=== PATIENT | male | born 1945 | race Caucasian/White ===

== ENCOUNTER → 2017-05-23 | Outpatient (REF) | payer MEDICARE, OTHER ==
[~2017-05-23] MED LIST: ACET50TA PO; ALBUPOW9 INH; CARV25TA PO; ENAL10TA2 PO; FINA5TAB2 PO; FURO40TA2 PO; LATA0.00 OP; LATANOPROST OU; LYRI75CA PO; PERC7.5T12 PO; PRIL20CA PO; TAMS0.4C PO; ULTR50TA PO; WARF10TA15 PO; oxybutynin OR; spiriva INH
[2017-05-23 15:59] LABS: INR 1.11
== END ==
LOC: M LABDRAW1 15:40
PROVIDERS: ATTEND Physical Medicine & Rehabilitation
DX: Z01.818 Encounter for other preprocedural examination (principal)

== ENCOUNTER → 2018-12-09 | Outpatient (REF) | payer MEDICARE, OTHER | LOC: M LABDRAW1 09:26 | PROVIDERS: ATTEND Physical Medicine & Rehabilitation | DX: M51.37 Other intervertebral disc degeneration, lumbosacral region (principal); M47.817 Spondylosis without myelopathy or radiculopathy, lumbosacral region; Z79.01 Long term (current) use of anticoagulants ==

== ENCOUNTER → 2020-04-16 | Outpatient (CLI) | payer MEDICARE, OTHER ==
[~2020-04-16] MED LIST changes: -ACET50TA PO; +MAPA500T17 PO
== END ==
LOC: M LABSMTC 10:43
PROVIDERS: ATTEND Physical Medicine & Rehabilitation
DX: Z11.59 Encounter for screening for other viral diseases (principal)

== ENCOUNTER → 2020-07-14 | Outpatient (CLI) | payer MEDICARE, OTHER | LOC: M LABSMTC 09:57 | PROVIDERS: ATTEND Physical Medicine & Rehabilitation | DX: Z01.812 Encounter for preprocedural laboratory examination (principal); Z20.828 Contact with and (suspected) exposure to other viral communicable diseases ==